=== PATIENT | male | born 1990 | race Caucasian/White ===

== ENCOUNTER 2020-09-03 13:07 | Inpatient (IN) | payer BC, MEDICAID ==
[~2020-09-03] VITALS: Ht 188 cm; Wt 68.9 kg
--- NOTE | 2020-09-03 13:15 | NUR ---
PT AMBULATORY TO ER BED 01 C/O SOB, L SIDED RIB AREA PAIN THAT STARTED YESTERDAY, STATES WORST TODAY. 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 STABLE VITALS. NAD NOTED. AWAITING MD CONCEPCION.
--- NOTE | 2020-09-03 13:30 | NUR ---
DR ROYAL AT BEDSIDE FOR EVAL.
--- NOTE | 2020-09-03 13:57 | NUR ---
CODE STEMI ACTIVATED
[2020-09-03] MEDS ORDERED: ASPIRIN 81 MG TAB.CHEW PO ONE (14:00)
[2020-09-03] MEDS ORDERED: ASPIRIN 81 MG TAB.CHEW ONE (14:05)
--- NOTE | 2020-09-03 14:05 | NUR ---
CALLED [facility] FAXED EK [phone]
--- NOTE | 2020-09-03 14:11 | NUR ---
CALLED [facility] SPOKE WITH RAMÍREZ CLAYTON WILL CALL DR. ROYAL SHORTLY.
--- NOTE | 2020-09-03 14:11 | NUR ---
CALLED DR. NEWBERRY
--- NOTE | 2020-09-03 14:12 | NUR ---
DR. CLAYTON SPEAKING WITH DR. ROYAL
--- NOTE | 2020-09-03 14:14 | NUR ---
Dr. Rossi speaking to Dr. Brandon
--- NOTE | 2020-09-03 14:16 | NUR ---
cancel code stemi per Dr. Brandon
[2020-09-03] MEDS ORDERED: IOHEXOL-350 100 ML VIAL IV ONE (14:20)
[2020-09-03] MEDS ORDERED: IV NS 0.9% 250 ML IV ONE (14:20)
[2020-09-03 14:22] LABS: BASOPHILS # (AUTO) 0.1 /CMM (0.0-0.2); BASOPHILS % (AUTO) 0.7 % (0.0-2.0); EOSINOPHILS % (AUTO) 1.4 % (0.0-6.0); HEMATOCRIT 45 % (39-51); HEMOGLOBIN 15.4 g/dL (13.5-17.5); LYMPHOCYTES # (AUTO) 1.7 /CMM (0.8-4.8); LYMPHOCYTES % (AUTO) 20.9 % (20.0-44.0); MEAN CORPUSCULAR HGB CONC 34 g/dl (31.0-36.0); MEAN CORPUSCULAR VOLUME 92 fL (80-96); MONOCYTES # (AUTO) 0.5 /CMM (0.1-1.30); MONOCYTES % (AUTO) 6.7 % (2.0-12.0); NEUTROPHILS # (AUTO) 5.6 /CMM (1.8-8.9); NEUTROPHILS % (AUTO) 70.3 % (43.0-81.0); PLATELET COUNT (AUTO) 237 /CMM (150-450); RED BLOOD CELL COUNT(AUTO) 4.85 MIL/uL (4.5-6.0); WHITE BLOOD COUNT (AUTO) 7.9 K/uL (4.3-11.0)
[2020-09-03] MEDS ORDERED: NITROGLYCERIN 0.4 MG/TAB BOTTLE SL ONE (14:30)
[2020-09-03 14:32] LABS: CALCIUM, SERUM 9.5 mg/dL (8.5-10.1); CREATININE 0.9 mg/dL (0.6-1.3)
[2020-09-03] MEDS ORDERED: IV NS 0.9% 500 ML IV STA (14:37)
[2020-09-03] MEDS ORDERED: IV NS 0.9% 500 ML IV ONE (14:37)
[2020-09-03] MEDS ORDERED: METOPROLOL TARTRATE INJ 5 MG/5 ML AMPUL ONE ×2 (14:38→14:55)
[2020-09-03] MEDS: METOPROLOL TARTRATE INJ 5 MG/5 ML AMPUL IVP PRN ×2 (14:42→14:47)
--- NOTE | 2020-09-03 14:54 | NUR ---
RN NOTES; Post CTA, patient awake and verbally responsive, metoprolol 10mg and nitroquick 1 tab given and a bolus of NS 500ml for BP support per protocol. Patient able to tolerate procedure without any discomfort. Transferred back to ER
--- NOTE | 2020-09-03 15:59 | NUR ---
rapid covid negative by lab.
[2020-09-03] MEDS ORDERED: DEXAMETHASONE SOD PHOSPHATE 10 MG/ML VIAL IV ONE (16:30)
[2020-09-03] MEDS ORDERED: DEXAMETHASONE SOD PHOSPHATE 10 MG/ML VIAL ONE (16:36)
--- NOTE | 2020-09-03 16:43 | NUR ---
room [facility]
--- NOTE | 2020-09-03 16:48 | NUR ---
Report given to leonel MOODY for trevin.
[2020-09-03] MEDS ORDERED: MAGNESIUM HYDROXIDE 30 ML UDC PO PRN (17:30)
[2020-09-03] MEDS ORDERED: MAG HYDROX/AL HYDROX/SIMETH 30 ML UDC PO PRN (17:30)
[2020-09-03] MEDS ORDERED: Z GUARD REMEDY 2 OZ OINT TP PRN (17:30)
[2020-09-03] MEDS ORDERED: ZOLPIDEM TARTRATE 5 MG TABLET PO PRN (17:30)
[2020-09-03] MEDS ORDERED: ONDANSETRON HCL/PF 4 MG/2 ML VIAL IVP PRN (17:30)
[2020-09-03] MEDS ORDERED: ACETAMINOPHEN 325 MG TABLET PO PRN (17:30)
[2020-09-03] MEDS ORDERED: HYDROCODONE/APAP 5/325MG TABLET PO PRN (17:30)
[2020-09-03] MEDS ORDERED: ASPIRIN EC 81 MG TABLET.DR PO ONE (18:00)
--- NOTE | 2020-09-03 18:44 | NUR ---
IMMIGRATION LAWYERCLINICAL DATA ASSOCIATE NOTE RECEIVED REPORT FROM ER ABOUT PT. PT ARRIVED IN UNIT AT 18:10 VIA GURNEY, ACCOMPANIED BY 2 ER NURSES. PT IS AWAKE, A/O X 4, [place] SPEAKING, VERBAL AND ABLE TO MAKE NEEDS KNOWN. PT IS IN NO APPARENT DISTRESS AND HAS NO C/O PAIN AT THIS TIME. PT IS ON ROOM AIR WITH SPO2 98%, NO S/SX OF RESPIRATORY DISTRESS OR SOB NOTED. PT'S TELE MONITOR SHOWS NSR AT 89 BPM, PT IS IN NO APPARENT CARDIAC DISTRESS AT THIS TIME. PT HAS IV ACCESS ON LEFT AND RIGHT AC G#18 SL, PATENT, INTACT AND FLUSHING WELL WITH NO S/SX OF INFECTION, INFLAMMATION OR IRRITATION. RECEIVED A CALL FROM LAB REGARDING CRITICAL LAB ON [place] 17.3. DR. NEWBERRY, DR. CH AND CHARGE NURSE RAHEEM MADE AWARE. ORDER FROM DR. CH TO REPEAT IN 6 HOURS. PT ORIENTED TO UNIT AND TO ROOM. PT EDUCATED RNFA LIGHT, VERBALIZED UNDERSTANDING AND WAS ABLE TO HAVE SUCCESSFUL RETURN DEMONSTRATION. SAFETY MEASURES IN PLACE: BED IN LOWEST POSITION AND LOCKED WITH BOTH UPPER SIDE RAILS UP X 2. CALL LIGHT PLACED WITHIN REACH. WILL ENDORSE TO DIETETICS DIRECTOR NURSE.
--- NOTE | 2020-09-03 18:52 | NUR ---
wheeled patient via gurney accompanied by RN and emt in no distress. RN ta bedside to assume care.
[2020-09-03 20:00] VITALS: BP 106/63
--- NOTE | 2020-09-03 21:04 | NUR ---
MS/TELE/RN DURING INITIAL SHIFT ROUNDING, PATIENT WAS IN BED AWAKE, ALERT, ORIENTED, COMFORTABLE, NO C/O PAIN, NO DISTRESS NOTED, CALL LIGHT IN REACH. WILL MONITOR.
[2020-09-04] VITALS: BP 111/62
--- NOTE | 2020-09-04 | NUR ---
MS/TELE/RN PATIENT IS SLEEPING, APPEAR COMFORTABLE, NO SIGNS OF DISTRESS NOTED, CALL LIGHT IN REACH. WILL CONTINUE TO MONITOR.
[2020-09-04 04:00] VITALS: BP 111/62
[2020-09-04 05:54] LABS: BASOPHILS # (AUTO) 0.1 /CMM (0.0-0.2); BASOPHILS % (AUTO) 0.6 % (0.0-2.0); HEMATOCRIT 44 % (39-51); HEMOGLOBIN 15.2 g/dL (13.5-17.5); MEAN CORPUSCULAR HGB CONC 35 g/dl (31.0-36.0); MEAN CORPUSCULAR VOLUME 93 fL (80-96); MONOCYTES # (AUTO) 0.5 /CMM (0.1-1.30); MONOCYTES % (AUTO) 3.8 % (2.0-12.0); NEUTROPHILS # (AUTO) 10.8 /CMM (1.8-8.9); NEUTROPHILS % (AUTO) 87.6 % (43.0-81.0); PLATELET COUNT (AUTO) 259 /CMM (150-450); RED BLOOD CELL COUNT(AUTO) 4.74 MIL/uL (4.5-6.0); WHITE BLOOD COUNT (AUTO) 12.3 K/uL (4.3-11.0)
[2020-09-04 06:02] LABS: CALCIUM, SERUM 9.3 mg/dL (8.5-10.1); CREATININE 0.7 mg/dL (0.6-1.3); MAGNESIUM 2.4 mg/dL (1.8-2.4); PHOSPHORUS 4.1 mg/dL (2.5-4.9); POTASSIUM 4.9 mmol/L (3.5-5.1)
[2020-09-04 06:12] LABS: THYROID STIMULATING HORMONE 0.145 uIU/mL (0.358-3.74)
--- NOTE | 2020-09-04 07:10 | NUR ---
RN OPENING NOTE PATIENT RECEIVED IN BED RESTING IN SEMI-FOWLERS POSITION. NO COMPLAINTS OF CHEST PAIN, SOB, OR RESPIRATORY DISTRESS NOTED. PATIENT IS ON ROOM AIR. SAFETY PRECAUTIONS IN PLACE, BED LOCKED IN LOWEST POSITION, SIDE RAILS UP X2, CALL LIGHT WITHIN REACH. WILL CONTINUE TO MONITOR AND PROVIDE CARE THROUGHOUT SHIFT.
[2020-09-04] MEDS ORDERED: PANTOPRAZOLE 40 MG TABLET.DR PO SCH (07:30)
[2020-09-04 08:00] VITALS: BP 106/62
--- NOTE | 2020-09-04 09:25 | NUR ---
RT Stat EKG done, EKG results reported and marked stat for reading MD on cardioserver.
[2020-09-04 15:52] VITALS: BP 98/56
--- NOTE | 2020-09-04 16:28 | NUR ---
patient discharged from hospital in stable condition. patient picked up by family member. all belongings and valubles given to patient as well as discharge paperwork and instructions.
== END 2020-09-04 16:25 | disposition home or self-care (01) | DRG 866 ==
LOC: ER 13:11 → TELE 17:23 → MED 09-04 12:37
PROVIDERS: ADMIT Student in an Organized Health Care Education/Training Program; ATTEND Internal Medicine
DX: T88.1XXA Other complications following immunization, not elsewhere classified, initial encounter (principal); I51.4 Myocarditis, unspecified; F12.90 Cannabis use, unspecified, uncomplicated; Z20.822 Contact with and (suspected) exposure to COVID-19; F17.200 Nicotine dependence, unspecified, uncomplicated; Y84.8 Other medical procedures as the cause of abnormal reaction of the patient, or of later complication, without mention of misadventure at the time of the procedure; Y92.89 Other specified places as the place of occurrence of the external cause
CPT/HCPCS: 36415; 71045-TC; 75574; 80048-TC; 80061-TC; 83735-TC; 84100-TC; 84439-TC; 84443-TC; 84484-TC; 85025-TC; 85652-TC; 85730-TC; 86140-TC; 87081-TC; 93307-TC; C9803; G0378; J1100; J3490; J7040; J7050; Q9967

== ENCOUNTER 2022-10-27 12:06 | Emergency (ER) | payer BC, MEDICAID ==
[~2022-10-27] VITALS: Ht 188 cm; Wt 63.0 kg
--- NOTE | 2022-10-27 12:10 | NUR ---
REceived pt 32 yrs old male came from home c/o suddnly lt side abdominale pain with n/v this morning
--- NOTE | 2022-10-27 12:25 | NUR ---
IV ESTABLISHED L AC 20G. LABS DRAWN AND SENT.
[2022-10-27] MEDS ORDERED: IV NS 0.9% 500 ML BAG IV ONE (12:30)
[2022-10-27] MEDS ORDERED: ONDANSETRON HCL/PF 4 MG/2 ML VIAL ONE (12:30)
[2022-10-27] MEDS ORDERED: KETOROLAC TROMETHAMINE INJ 30 MG/ML VIAL IV ONE (12:30)
[2022-10-27] MEDS ORDERED: MORPHINE SULFATE INJ 2 MG/ML DISP.SYRIN IV ONE ×2 (12:30→14:00)
[2022-10-27] MEDS ORDERED: ONDANSETRON HCL/PF 4 MG/2 ML VIAL IVP ONE (12:30)
[2022-10-27] MEDS ORDERED: MORPHINE SULFATE INJ 2 MG/ML DISP.SYRIN ONE ×2 (12:31→14:03)
[2022-10-27] MEDS ORDERED: KETOROLAC TROMETHAMINE INJ 30 MG/ML VIAL ONE (12:31)
[2022-10-27 12:45] LABS: BASOPHILS % (AUTO) 0.5 % (0.0-2.0); EOSINOPHILS % (AUTO) 1.2 % (0.0-6.0); HEMATOCRIT 46 % (39-51); HEMOGLOBIN 15.2 g/dL (13.5-17.5); LYMPHOCYTES # (AUTO) 2.4 K/uL (0.8-4.8); LYMPHOCYTES % (AUTO) 36.5 % (20.0-44.0); MEAN CORPUSCULAR HGB CONC 33 g/dl (31.0-36.0); MEAN CORPUSCULAR VOLUME 95 fL (80-96); MONOCYTES # (AUTO) 0.4 K/uL (0.1-1.30); MONOCYTES % (AUTO) 6.6 % (2.0-12.0); NEUTROPHILS # (AUTO) 3.7 K/uL (1.8-8.9); NEUTROPHILS % (AUTO) 55.2 % (43.0-81.0); PLATELET COUNT (AUTO) 337 K/uL (150-450); RED BLOOD CELL COUNT(AUTO) 4.83 MIL/uL (4.5-6.0); WHITE BLOOD COUNT (AUTO) 6.7 K/uL (4.3-11.0)
--- NOTE | 2022-10-27 12:48 | NUR ---
UA SENT TO LAB
--- NOTE | 2022-10-27 12:51 | NUR ---
TO ct scan of abdomine via deanne short vs
[2022-10-27 12:54] LABS: CALCIUM, SERUM 9.9 mg/dL (8.5-10.1); CREATININE 0.8 mg/dL (0.6-1.3); POTASSIUM 4.1 mmol/L (3.5-5.1)
[2022-10-27 13:00] LABS: ALBUMIN 4.6 g/dL (3.4-5.0); BILIRUBIN,DIRECT 0.2 mg/dL (0.0-0.2); BILIRUBIN,TOTAL 0.9 mg/dL (0.2-1.0); TOTAL PROTEIN, SERUM 7.9 g/dL (6.4-8.2)
--- NOTE | 2022-10-27 13:05 | NUR ---
PT RETURNED FROM CT VIA [facility]
[2022-10-27 13:12] LABS: BILIRUBIN,URINE NEGATIVE (NEGATIVE); COLOR,URINE YELLOW (YELLOW); LEUKOCYTE ESTERASE ,URINE NEGATIVE (NEGATIVE); NITRITE, URINE NEGATIVE (NEGATIVE); PROTEIN,URINE TRACE mg/dl (NEGATIVE); UGLUCOSE NEGATIVE (NEGATIVE); UROBILINOGEN,URINE 0.2 EU/dL (0.2)
[2022-10-27 13:13] LABS: PH,URINE >8.5 (5.0-8.0)
[2022-10-27 13:18] LABS: BACTERIA,URINE None seen /HPF (None Seen); SQUAMOUS EPITHELIAL CELL,UR Rare /HPF (None Seen); URINE AMORPHOUS PHOSPHATES Moderate /HPF (None Seen); WBC,URINE 0-2 /HPF (0-3)
--- NOTE | 2022-10-27 13:30 | NUR ---
PAIN PACK 11/29 MORPHIN 2 MG IVP WAS GIVEN
[2022-10-27] MEDS ORDERED: IBUP-1957 PO (13:34)
[2022-10-27] MEDS ORDERED: HYDR-3980 PO (13:34)
[2022-10-27] MEDS ORDERED: TAMS-12 PO (13:34)
--- NOTE | 2022-10-27 14:50 | NUR ---
IV removed. Catheter intact and site benign. Pressure and 4x4 applied to site. No bleeding noted.
--- NOTE | 2022-10-27 14:52 | NUR ---
Patient discharged to home in stable condition. Written and verbal after care instructions given. Patient verbalizes understanding of instruction.
[2022-10-27 19:28] VITALS: BP 121/78
== END 2022-10-27 15:00 | disposition home or self-care (01) ==
LOC: ER 12:06
DX: N20.0 Calculus of kidney (principal)
CPT/HCPCS: 99285; 74176; 96374; 96375; 96361; 96376; 85025; 80048; 83690; 80076; 81001; 36415; J1885; J2405; J7030; J7040; J2270 ×2